=== PATIENT | male | born 1990 | race Caucasian/White ===

== ENCOUNTER 2021-08-14 05:44 | Emergency (ER) | payer MEDICAID ==
[~2021-08-14] VITALS: Ht 185.4 cm; Wt 90.7 kg
--- NOTE | 2021-08-14 05:55 | NUR ---
BIB BY FATHER FOR C/O INCREASED ANXIETY AND AGIATATION OVER THE PAST TWO WEEKS. PATIENT WITH HX OF SHIZO. PER FATHER PATIENT HAD A TELE ASSESSMENT BY HIS PSYCHIATRIST AND MD INCREASED THE DOSE OF ABILIFY WHICH WAS NOT EFFECTIVE; THEREFORE, PATIENT WAS REFFERED TO ER. PATIENT ALERT AND RESPONSIVE ON TRIAGE. AMBULLATOR WITH STEADY GAITS TO THE BATHROOM. URINE SAMPLE OBTAINED AND PATIENT WAS PLACED IN BED 13 ER. FATHER AT THE BED SIDE, VSS. WILL CONTINUE TO MONITOR.
--- NOTE | 2021-08-14 06:01 | NUR ---
urine collected sent to lab
--- NOTE | 2021-08-14 06:01 | NUR ---
covid swab collected sent to lab
[2021-08-14 06:20] LABS: BASOPHILS % (AUTO) 0.2 % (0.0-2.0); EOSINOPHILS % (AUTO) 0.8 % (0.0-6.0); HEMATOCRIT 44 % (39-51); HEMOGLOBIN 14.9 g/dL (13.5-17.5); LYMPHOCYTES # (AUTO) 2.5 K/uL (0.8-4.8); LYMPHOCYTES % (AUTO) 27.1 % (20.0-44.0); MEAN CORPUSCULAR HGB CONC 34 g/dl (31.0-36.0); MEAN CORPUSCULAR VOLUME 94 fL (80-96); MONOCYTES # (AUTO) 0.6 K/uL (0.1-1.30); NEUTROPHILS # (AUTO) 6.1 K/uL (1.8-8.9); NEUTROPHILS % (AUTO) 65.9 % (43.0-81.0); PLATELET COUNT (AUTO) 175 K/uL (150-450); RED BLOOD CELL COUNT(AUTO) 4.66 MIL/uL (4.5-6.0); WHITE BLOOD COUNT (AUTO) 9.3 K/uL (4.3-11.0)
[2021-08-14 06:21] LABS: BILIRUBIN,URINE NEGATIVE (NEGATIVE); COLOR,URINE YELLOW (YELLOW); LEUKOCYTE ESTERASE ,URINE NEGATIVE (NEGATIVE); NITRITE, URINE NEGATIVE (NEGATIVE); PROTEIN,URINE NEGATIVE (NEGATIVE); UGLUCOSE NEGATIVE (NEGATIVE); UROBILINOGEN,URINE 0.2 EU/dL (0.2)
[2021-08-14 06:55] LABS: CALCIUM, SERUM 8.5 mg/dL (8.5-10.1); CARBON DIOXIDE 29 mmol/L (21-32); CHLORIDE 105 mmol/L (98-107); CREATININE 1.2 mg/dL (0.6-1.3); GLUCOSE 93 mg/dL (74-106); POTASSIUM 3.8 mmol/L (3.5-5.1); SODIUM SERUM 141 mmol/L (136-145); UREA NITROGEN, BLOOD 20 mg/dL (7-18)
[2021-08-14 07:01] LABS: ALANINE AMINOTRANSFERASE 46 U/L (12-78); ALKALINE PHOSPHATASE 63 U/L (46-116); ASPARTATE AMINOTRANSFERASE 27 U/L (15-37); BILIRUBIN,DIRECT 0.1 mg/dL (0.0-0.2); BILIRUBIN,TOTAL 0.6 mg/dL (0.2-1.0); TOTAL PROTEIN, SERUM 7.6 g/dL (6.4-8.2)
[2021-08-14 07:11] LABS: ACETAMINOPHEN < 10 ug/ml (10-30)
[2021-08-14 07:12] LABS: ALCOHOL, BLOOD < 3 mg/dL (0-0)
--- NOTE | 2021-08-14 07:59 | NUR ---
FAMILY AT BEDSIDE W/ PATIENT
[2021-08-14 08:19] LABS: BACTERIA,URINE None seen /HPF (None Seen); RBC,URINE 0-2 /HPF (0-2); SQUAMOUS EPITHELIAL CELL,UR None Seen /HPF (None Seen); WBC,URINE NONE SEEN /HPF (0-3)
--- NOTE | 2021-08-14 08:35 | NUR ---
BREAKFAST PROVIDED, FATHER ASSISTING PT
--- NOTE | 2021-08-14 10:19 | NUR ---
FATHER AT BEDSIDE AND VERBALIZED THAT THEY ARE GOING TO LEAVE. EXPLAINED SITUATION TO FATHER AND PATIENT THAT THEY WILL BE SEEN BY CRISIS TEAM. ALEXANDR MADE AWARE.
[2021-08-14] MEDS ORDERED: OLANZAPINE ZYDIS 5 MG TAB.RAPDIS PO ONE (12:00)
[2021-08-14] MEDS ORDERED: OLANZAPINE 5 MG TABLET ONE (12:07)
--- NOTE | 2021-08-14 12:10 | NUR ---
SS Note: SS consult requested for symptoms of psychosis. SW met with pt. at bedside. The pt. is alert & oriented x 2 and makes good eye contact. The appears well-groomed, remained calm & cooperative throughout interview. Pt. has slight speech stuttering. Pt. stated he has intermittent SI. Pt. denies current HI. Pt. has delayed response to interview questions. Patient admitts to hearing "like 50 voices". Pt. states the voices tell him to "punch things". Pt. states the voices make him angry. Pt. stated he has Hx. of Bipolar & schizophrenia and is compliant with his medications. Patient's father, Fernando Cole Sr. is at bedside and the provided collateral information. Pt. was having difficulty engaging in conversation due to hallucinations. The father stated that the pt.'s has had increasingly agitated and aggressive behavior at home the past 2 weeks. Per father the pt. has been seeing his psychiatrist, Dr. Nanda Pleitez who titrated the patient's medication up from 15 to 20 mg of Abilify. However, the pt.'s father stated the patient's medication has still worsened since. Father stated he has difficulty maanging the patient's behavior at home. Father reports the pt. sleeps 10 pm-3 am and begins to scream, punch the air, yell curse words due to AH. Father states pt. is slightly unpredictable and is worried as he also cares for the pt.'s son who he adopted. Father states that the pt. presents calm and guarded out in public but at home his behavior is concerning. Per father, pt. also has a therapist Lady tel: [phone]. plan: LAUREN discussed with Dr. Nam. LAUREN called [facility] [phone] to evaluate pt. Per heel gummer's recommendation pt. to be medicated with Zyprexa and she will come evaluate the pt. later. LAUREN discussed with patient's father and he is agreeable to plan. The father stated he was going to leave but he asked to be called and updated. LAUREN provided father with the [facility] resources: Counseling--[facility] [address] [place] [address] (Specializes in in-depth psychotherapy for emotional distress: anxiety, depression, interpersonal conflicts, life transitions, childhood abuse) [facility] [address] [place] [address] (Assist with solving problem marital difficulties, separation & divorce, aging parents, & grief, chronic & terminal illness) [facility] [address] [place] [address] (Deal with loss & grief, anxiety, marital difficulties) [facility] [address] [facility] [address] [place], [place] [id number] (Provide in-home mental services to people who are incapable of leaving their homes) [facility] [address] [place], [place] [id number] [facility] [address] [place] [address] PSYCHIATRIC OUTPATIENT SERVICES [facility] Partial Hospitalization and Intensive Outpatient Program (Managed Care and [place] Only) [address] [facility] [address]; [phone] [facility] Partial Hospitalization and Outpatient Program [address] [facility] [address] [place] [address]; [phone] [facility] [id number] [facility] [address] [place], [place] [phone] [facility] Partial Hospitalization and Outpatient E[address] [place], [place] ; [phone] ;[phone] [facility] [address] [place] [address] Mental Health Services [facility] [address] [place] [address] Services: Outpatient therapy for children, teens, young adults, adults, older adults, and families; Psychiatric services, medication support [place] Crisis and Hotline Telephone Numbers: 24-Hour service unless stated [place] Mental Health/Crisis Line........[phone] Suicide Prevention Center (24 Hours).......[phone] Suicide Prevention Crisis Center.......[phone] (24 Hours) Alcoholics Anonymous (24 Hours)..........[phone] National Crisis Hotlines: Alcohol and Drug Helpline - Provides referrals to local facilities where adolescents and adults can seek help. Brief intervention. [facility] Helpline National [place] [facility] [employer] [employer] 7-019-014-DBWI National Youth Crisis Hotline [facility] Provides free information on specific disorders, referral directory to mental health providers, national directory of local mental health associations (M-F, 9-5 EST) National [place] [facility] [employer] [facility] Information Line: Provide sinformation and literature on mental illness by disorder-for professionals and general public.
--- NOTE | 2021-08-14 16:18 | NUR ---
Patient's clinicals have being faxed to [facility] for voluntary admission. Please check for admission updates.
--- NOTE | 2021-08-14 21:15 | NUR ---
PROVIDED FOOD AND WATER , WILL CONTINUE TO MONITOR
--- NOTE | 2021-08-15 03:05 | NUR ---
PT IS SLEEPING , CONNECTED TO MONITOR. VSS.
--- NOTE | 2021-08-15 09:36 | NUR ---
Pt. has been accepted to [facility] [[address] [place] [address] FAX:[phone]] for voluntary psychiatric treatment under the care of Dr. Choi. Per Intake, bed will be available after 11 am. [facility] will send transport for pt. SW notified Barbi Wick.
[2021-08-15 12:00] VITALS: BP 118/71
--- NOTE | 2021-08-15 12:06 | NUR ---
REPORT GIVEN TO NURSE LUCA FROM FRANCINE PEARL
--- NOTE | 2021-08-15 12:06 | NUR ---
THE PATIENT IS DISCHARGED TO [facility] [place] IN STABLE CONDITION VIA ARRANGED TRANSPO.
--- NOTE | 2021-08-15 12:31 | NUR ---
SW called the pt.s' father, Fernando Cole Sr. [phone] and notified him that the pt. was accepted and trasnferred to [facility] [[facility] [place], [place] [address] . Fernando expressed understanding and is agreeable.
== END 2021-08-15 13:35 ==
LOC: ER 06:00
DX: F20.9 Schizophrenia, unspecified (principal); Z20.822 Contact with and (suspected) exposure to COVID-19
CPT/HCPCS: 36415; 80048; 80076; 80143; 80307; 80320; 81001; 85025; 87426; 99285; C9803; G0480